=== PATIENT | male | born 1980 | race Caucasian/White ===

== ENCOUNTER 2018-08-25 14:27 | Emergency (ER) | payer MEDICAID, OTHER ==
[2018-08-25] MEDS: IBUPROFEN 600 MG TAB PO (17:16)
== END 2018-08-25 18:30 | disposition home or self-care (01) ==
LOC: FTE 14:27
DX: S62.612A Displaced fracture of proximal phalanx of right middle finger, initial encounter for closed fracture (principal); X50.1XXA Overexertion from prolonged static or awkward postures, initial encounter; Y92.9 Unspecified place or not applicable
CPT/HCPCS: 29130; 73130-RT; 99283-25